=== PATIENT | male | born 1960 | race Caucasian/White ===

== ENCOUNTER 2016-03-16 11:12 | Emergency (ER) | payer OTHER ==
[2016-03-16 12:03] VITALS: BP 141/82
[2016-03-16] MEDS: Ibuprofen TAB* 600 MG PO ONE (12:26)
--- NOTE | 2016-03-16 12:47 | UC ---
Respiratory Complaint HPI - HPI Summary HPI Summary: Cough, body aches, concern he has the flu, Kids at home have have recent viral illnesses - History of Current Complaint Chief Complaint: UCGeneralIllness Stated Complaint: SORE THROAT EARS PLUGGED Time Seen by Provider: 03/16/16 12:04 Hx Obtained From: Patient Onset/Duration: Gradual Onset, Lasting Days, Still Present Timing: Constant Severity Initially: Mild Severity Currently: Mild Pain Intensity: 3 Pain Scale Used: 0-10 Numeric Character: Cough: Nonproductive Aggravating Factors: Nothing Alleviating Factors: Nothing Associated Signs And Symptoms: Positive: Chills, URI - Allergies/Home Medications Allergies/Adverse Reactions: Allergies Allergy/AdvReac Type Severity Reaction Status Date / Time Penicillins Allergy Intermediate all over Verified 03/16/16 11:57 body hives PMH/Surg Hx/FS Hx/Imm Hx Previously Healthy: Yes Endocrine History Of: Denies: Diabetes, Thyroid Disease Cardiovascular History Of: Denies: Cardiac Disorders, Hypertension Respiratory History Of: Denies: COPD, Asthma GI/ History Of: Denies: Ulcer - Surgical History Surgical History: None - Family History Known Family History: Positive: Unknown Family History: denies cardiovascular issues in family lineage - Social History Occupation: Employed Full-time Lives: With Family Alcohol Use: Daily Alcohol Amount: 8 beers daily Substance Use Type: None Smoking Status (MU): Heavy Every Day Tobacco Smoker Type: Cigarettes Amount Used/How Often: 3/4 PPD x 32 years Have You Smoked in the Last Year: Yes Household Exposure Type: Cigarettes Cessation Counseling: Counseled 3+Min - 10 Min - Immunization History Most Recent Influenza Vaccination: 2010 Review of Systems Constitutional: Chills, Fatigue Skin: Negative Eyes: Negative ENT: Negative Respiratory: Cough Cardiovascular: Negative Gastrointestinal: Negative Genitourinary: Negative Motor: Negative Neurovascular: Negative Musculoskeletal: Arthralgia, Myalgia Neurological: Negative Psychological: Negative All Other Systems Reviewed And Are Negative: Yes Physical Exam Triage Information Reviewed: Yes Appearance: No Pain Distress, Ill-Appearing - mild, appear older than stated age , Thin Vital Signs: Initial Vital Signs Temp 100.1 F 03/16/16 11:57 Pulse 94 03/16/16 11:57 Resp 16 03/16/16 11:57 BP 141/82 03/16/16 11:57 Pulse Ox 95 02/05/17 11:57 Vital Signs Reviewed: Yes Eye Exam: Normal Eyes: Positive: Conjunctiva Clear ENT: Positive: Hearing grossly normal, Pharynx normal, Nasal congestion, Nasal drainage, TMs normal. Negative: Tonsillar swelling, Tonsillar exudate, Trismus , Muffled/hoarse voice Neck exam: Normal Neck: Positive: Supple, Nontender, No Lymphadenopathy Respiratory Exam: Normal Respiratory: Positive: Chest non-tender, Lungs clear, Normal breath sounds, No respiratory distress, No accessory muscle use Cardiovascular Exam: Normal Cardiovascular: Positive: RRR, No Murmur, Pulses Normal, Brisk Capillary Refill Musculoskeletal Exam: Normal Musculoskeletal: Positive: Strength Intact, ROM Intact, No Edema Neurological Exam: Normal Neurological: Positive: Alert, Muscle Tone Normal Psychological Exam: Normal Skin Exam: Normal UC Diagnostic Evaluation - Laboratory O2 Sat by Pulse Oximetry: 95 Diagnostic Studies Comment: RST(-), Influenza A/B (-) Respiratory Course/Dx - Course Course Of Treatment: smoking and alcohol cesation information provided to patient, B-vitamins encouraged, albuterl, zithromax, increase fluids, follow with pcp re-check prn - Differential Dx/Diagnosis Differential Diagnosis/HQI/PQRI: Bronchitis, Influenza, Sinusitis Provider Diagnoses: Nicotine dependant, alcohol abuse, bronchitis Discharge - Discharge Plan Condition: Stable Disposition: HOME Prescriptions: Albuterol HFA INHALER* [Ventolin HFA Inhaler*] 2 puff INH Q4H PRN #1 mdi PRN Reason: cough Azithromycin TAB* [Zithromax TAB (Z-JAY JAY) 250 mg #6 tabs] 2 tab PO .TODAY, THEN 1 DAILY #1 jay jay Patient Education Materials: How to Stop Smoking (ED), Cigarette Smoking and Your Health (GEN), How to Use a Metered-Dose Inhaler (ED), Acute Bronchitis (ED) , Secondhand Smoke Exposure in Children (ED) Referrals: Non Staff,Doctor [Primary Care Provider] - ( ) Additional Instructions: Follow at your health Center -in the next 2-3 days Also a multivitamin with B-vits will be helpful for you
== END 2016-03-16 13:05 | disposition home or self-care (01) ==
LOC: UCEAST 11:12
DX: J40 Bronchitis, not specified as acute or chronic (principal); Z88.0 Allergy status to penicillin; F10.10 Alcohol abuse, uncomplicated; F17.210 Nicotine dependence, cigarettes, uncomplicated; Z71.6 Tobacco abuse counseling
CPT/HCPCS: 87502; 87651; 99202; A9270-GY; G0463

== ENCOUNTER 2016-09-06 06:41 | Emergency (ER) | payer OTHER ==
[2016-09-06 08:51] VITALS: BP 148/72
--- NOTE | 2016-09-06 18:54 | ED ---
Ede Arreola Auryana, scribed for Emiliano López MD on 09/06/16 at 0717 . Lower Extremity - HPI Summary HPI Summary: 55 year old male presents with intermittent RLE starting 3 days ago. Patient reports that 1 week ago he was outside and "playing activities" but unsure if he injured it then. The pain originates in the right buttock and radiates down to the posterior knee. Patient is concerned because is he unable to get comfortable at night but reports no current pain. He denies any weakness, or numbness. He reports that the pain is hard to describe but that when sitting on soft surfaces the pain is much more noticeable, less noticeable on hard surfaces. The pain is also made worse with flexion of the RLE, extension of the RLE, ambulation, or prolonged siting. He reports normal bowel movements and no problems with urination. He denies any injuries, MVC, or any back surgeries. 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 PMHx is significant for low back pain. No history of DM, HTN, and HLD. SHx is significant for tobacco and alcohol use. - History of Current Complaint Chief Complaint: EDExtremityLower Stated Complaint: RIGHT LEG PAIN Time Seen by Provider: 09/06/16 07:51 Hx Obtained From: Patient Mechanism Of Injury: Unknown Onset of Pain: Days - 3 Onset/Duration: Still Present - denies pain on ED physician visit Severity Initially: Moderate Severity Currently: Moderate Pain Intensity: 8 Pain Scale Used: 0-10 Numeric Timing: Intermittent Location: Is Discrete @ - Right buttock and radiates down to the posterior knee Character Of Pain: Unable To Describe Associated Signs And Symptoms: Positive: Other - unable to sleep at night - cannot get comfortable Aggravating Factor(s): Ambulation, Other - sitting, flexion and extension Able to Bear Weight: Yes - Allergies/Home Medications Allergies/Adverse Reactions: Allergies Allergy/AdvReac Type Severity Reaction Status Date / Time Penicillins Allergy Intermediate all over Verified 03/16/16 11:57 body hives PMH/Surg Hx/FS Hx/Imm Hx Endocrine/Hematology History: Denies: Hx Diabetes, Hx Thyroid Disease Cardiovascular History: Denies: Hx Hypertension Respiratory History: Denies: Hx Asthma, Hx Chronic Obstructive Pulmonary Disease (COPD) GI History: Denies: Hx Ulcer Infectious Disease History: Denies: Hx Hepatitis, Hx Human Immunodeficiency Virus (HIV), Traveled Outside the [place] in Last 30 Days - Family History Known Family History: Negative: Cardiac Disease Family History: denies cardiovascular issues in family lineage - Social History Occupation: Employed Full-time Lives: With Family Alcohol Use: Daily Alcohol Amount: 8 beers daily Hx Substance Use: No Substance Use Type: Reports: None Smoking Status (MU): Heavy Every Day Tobacco Smoker Type: Cigarettes Amount Used/How Often: 3/4 PPD x 32 years Have You Smoked in the Last Year: Yes Cessation Counseling: Patient Advised to Stop Review of Systems Constitutional: Negative Negative: Fever Eyes: Negative ENT: Negative Cardiovascular: Negative Respiratory: Negative Gastrointestinal: Negative Genitourinary: Negative Positive: Myalgia - Right buttock pain that radiates down the posterior knee Skin: Negative Neurological: Negative Psychological: Normal All Other Systems Reviewed And Are Negative: Yes Physical Exam - Summary Physical Exam Summary: The patient is well-nourished in no acute distress and in no acute pain. The skin is warm and dry and skin color reflects adequate perfusion. HEENT: The head is normocephalic and atraumatic. The pupils are equal and reactive. The conjunctivae are clear and without drainage. Nares are patent and without drainage. Mouth reveals moist mucous membranes and the throat is without erythema and exudate. The external ears are intact. The ear canals are patent and without drainage. The tympanic membranes are intact. Neck is supple with full range of motion and non-tender. There are no carotid bruits. There is no neck vein distension. Respiratory: Chest is non-tender. Lungs are clear to auscultation and breath sounds are symmetrical and equal. Cardiovascular: HearT is regular rate and rhythm. There is no murmur or rub auscultated. There is no peripheral edema and pulses are symmetrical and equal. Abdomen: The abdomen is soft and non-tender. There are normal bowel sounds heard in all four quadrants and there is no organomegaly palpated. Musculoskeletal: There is no back pain noted. There is no reproducible thoracic or lumbar pain. There is tenderness over the right sciatic notch. There is a positive ipsilateral straight leg raise. There is a negative contralateral straight leg raise. Extremities are non-tender with full range of motion. There is good capillary refill and good pulses present in the lower extremities. There is no peripheral edema or calf tenderness elicited. Neurological: Patient is alert and oriented to person, place and time. The patient has symmetrical motor strength in all four extremities. Cranial nerves are grossly intact. Deep tendon reflexes are symmetrical and equal in all four extremities. There is no motor weakness. Psychiatric: The patient has an appropriate affect and does not exhibit any anxiety or depression. Triage Information Reviewed: Yes Vital Signs On Initial Exam: Initial Vitals Temp Pulse Resp 97.1 F 75 16 09/06/16 06:46 09/06/16 06:46 09/06/16 06:46 Vital Signs Reviewed: Yes Diagnostics - Vital Signs Vital Signs Temp Pulse Resp 09/06/16 06:46 97.1 F 75 16 - Laboratory Lab Statement: Any lab studies that have been ordered have been reviewed, and results considered in the medical decision making process. Lower Extremity Course/Dx - Course Assessment/Plan: 55 year old male presents with intermittent RLE starting 3 days ago. Patient reports that 1 week ago he was outside and "playing activities " but unsure if he injured it then. The pain originates in the right buttock and radiates down to the posterior knee. Patient is concerned because is he unable to get comfortable at night but reports no current pain. He denies any weakness, or numbness. He reports that the pain is hard to describe but that when sitting on soft surfaces the pain is much more noticeable, less noticeable on hard surfaces. The pain is also made worse with flexion of the RLE, extension of the RLE, ambulation, or prolonged siting. He reports normal bowel movements and no problems with urination. He denies any injuries, MVC, or any back surgeries. 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 PMHx is significant for low back pain. The patient denies any other concerns other than difficulty getting comfortable and night. Physican exam reveals a positive straight leg raise and tenderness at the right sciatic notch. He will be discharged home with [facility] physician follow up and given Rx for Flexeril and Naproxen. Patient is agreeable with plan. - Diagnoses Differential Diagnosis/HQI/PQRI: Positive: Sciatica, Other - hnp, ddd Provider Diagnoses: Sciatica Discharge - Discharge Plan Condition: Stable Disposition: HOME Prescriptions: Cyclobenzaprine TAB* [Flexeril 10 MG TAB*] 10 mg PO TID PRN #30 tab PRN Reason: pain Naproxen [Naprosyn 500 mg] 500 mg PO BID PRN #30 tab PRN Reason: pain Patient Education Materials: Naproxen (By mouth), Cyclobenzaprine (By mouth), Sciatica (ED) Referrals: [facility] PHYSICIAN REFERRAL [Outside] - 2 Days The documentation as recorded by the Ede loredo Auryana accurately reflects the service I personally performed and the decisions made by me, Emiliano López MD.
== END 2016-09-06 08:50 | disposition home or self-care (01) ==
LOC: ED 06:41
DX: M54.30 Sciatica, unspecified side (principal); F17.210 Nicotine dependence, cigarettes, uncomplicated
CPT/HCPCS: 99282